=== PATIENT | female | born 1980 | race Caucasian/White ===

== ENCOUNTER 2025-03-15 10:12 | Outpatient (CLI) | payer BC, SELFPAY ==
--- OUTSIDE RECORDS SUMMARY | 2025-03-15 10:20 | XMS_ITS | Encounter Summary ---
Author Organization [facility] Health Address [address] [place] [address] Care Team Providers Care Balance Staff Inspector Name Role Phone Unavailable Primary Care Provider Unavailabl e Prior Encounters Date Type Department Care Team Description 08/12/2019 Converted CPS Chart Documents [facility] [address] [place] [address] <No scans attached> 08/12/2019 Converted 13x Documents [facility] [address] [place] [address] <No scans attached> Plan of Treatment Not on file Procedures Procedure Name Priority Date/Time Associated Diagnosis Comments CANCELLED APPOINTMENT Routine 02/12/2014 2:00 AM CDT 14 DO AMALGAM 2 SURFACE Routine 01/14/20 14 2:00 AM CDT 13 DO AMALGAM 2 SURFACE Routine 01/14/20 14 2:00 AM CDT 19 O AMALGAM 1 SURFACE Routine 4 2:00 AM CDT 18 O AMALGAM 1 SURFACE Routine 4 2:00 AM CDT 4 O AMALGAM 1 SURFACE Routine 01/13/2014 2:00 AM CDT 3 O AMALGAM 1 SURFACE Routine 01/13/2014 2:00 AM CDT 2 O AMALGAM 1 SURFACE Routine 01/13/2014 2:00 AM CDT 31 ENDODONTIC THERAPY, MOLAR TOOTH (EXCLUDING FINAL FAITH) Routine 01/13/2014 2:00 AM CDT 15 SEALANT 2ND MOLAR Routine 01/13/2014 2:00 AM CDT 12 SEALANT 1ST MOLAR Routine 01/13/2014 2:00 AM CDT COMPREHENSIVE ORAL EVALUATION - NEW OR ESTABLISHED PATIENT Routine 01/13/2014 2:00 AM CDT ORAL HYGIENE INSTRUCTIONS Routine 2013 2:00 AM CDT TOPICAL APPLICATION OF FLUORIDE VARNISH Routine 01/13/2014 2:00 AM CDT PROPHYLAXIS - ADULT Routine 01/13/2014 2 :00 AM CDT PANORAMIC RADIOGRAPHIC IMAGE Routine 01/13/2014 2:00 AM CDT INTRAORAL - COMPREHENSIVE SERIES OF RADIOGRAPHIC IMAGES Routine 01/13/2014 2:00 AM CDT INTRAORAL PHOTO Routine 01/13/2014 2:00 AM CDT INTRAORAL PHOTO Routine 01/13/2014 2:00 AM CDT INTRAORAL PHOTO Routine 01/13/2014 2:00 AM CDT INTRAORAL PHOTO Routine 01/13/2014 2:00 AM CDT 30 MOD COMPOSITE FILLING Routine 014 2:00 AM CDT 5 MOD COMPOSITE FILLING Routine 01/14/20 14 2:00 AM CDT 29 DO COMPOSITE FILLING Routine 01/14/20 14 2:00 AM CDT 4 MO COMPOSITE FILLING Routine 4 2:00 AM CDT Visit Diagnoses Not on file
--- OUTSIDE RECORDS SUMMARY | 2025-03-15 10:20 | XMS_ITS | Clinical Summary ---
Author Organization [facility] Health Address [address] [place] [address] Care Team Providers Care Ios Developer Name Role Phone Unavailable Primary Care Provider Unavailabl e Social History Tobacco Use Types Packs/Day Years Used Date Smoking Tobacco: Never Assessed Comments Unknown Sex and Gender Information Value Date Recorded Sex Assigned at Not on file Legal Sex Female 9:07 PM PST Gender Identity Not on file Sexual Orientation Not on file Plan of Treatment Not on file
== END 2025-03-15 23:59 | disposition home or self-care (01) ==
LOC: RT 10:18
PROVIDERS: PCP Internal Medicine Adolescent Medicine; Visit Provider Internal Medicine Adolescent Medicine
DX: R55 Syncope and collapse (principal); R00.2 Palpitations
CPT/HCPCS: 93225; 93226